=== PATIENT | male | born 1990 | race Two or more races ===

== ENCOUNTER 2018-01-02 23:39 | Emergency (ER) | payer OTHER ==
[2018-01-02 23:52] VITALS: RESP 18; TEMP 98; O2SAT 100
--- NOTE | 2018-01-03 00:33 | ED PDOC ---
HPI: Male Pain Time Seen by Provider: 01/02/18 23:55 Chief Complaint (Nursing): Male Genitourinary Chief Complaint (Provider): Denies symptoms History Per: Patient History/Exam Limitations: no limitations Onset/Duration Of Symptoms: Days Current Symptoms Are (Timing): Still Present Additional Complaint(s): 27 yo male with no medical problems presents for evaluation. Pt states his girlfriend delivered their baby on 12/28. She was told today that she had trichomoniasis. Pt states he is not having any symptoms but is concerned. Pt states he has not any other partners. Pt would like urine tested first and treatment is positive. Past Medical History Reviewed: Historical Data, Nursing Documentation, Vital Signs Vital Signs: Last Vital Signs Temp 98.0 F 01/02/18 23:49 Pulse 63 01/02/18 23:49 Resp 18 01/02/18 23:49 BP 134/77 01/02/18 23:49 Pulse Ox 100 01/02/18 23:49 - Medical History PMH: No Chronic Diseases - Surgical History Surgical History: No Surg Hx - Family History Family History: States: No Known Family Hx - Living Arrangements Living Arrangements: With Family - Social History Current smoker - smoking cessation education provided: No - Allergies Allergies/Adverse Reactions: Allergies Allergy/AdvReac Type Severity Reaction Status Date / Time No Known Allergies Allergy Verified 01/03/18 00:08 Review of Systems ROS Statement: Except As Marked, All Systems Reviewed And Found Negative Constitutional: Negative for: Fever, Chills Genitourinary Male: Negative for: Dysuria, Frequency, Incontinence, Hematuria, Penile Discharge Physical Exam - Reviewed Nursing Documentation Reviewed: Yes Vital Signs Reviewed: Yes - Physical Exam Appears: Positive for: Well, Non-toxic, No Acute Distress Head Exam: Positive for: ATRAUMATIC, NORMAL INSPECTION, NORMOCEPHALIC Skin: Positive for: Normal Color, Warm, DRY Eye Exam: Positive for: Normal appearance ENT: Positive for: Normal ENT Inspection Neck: Positive for: Normal, Painless ROM Cardiovascular/Chest: Positive for: Regular Rate, Rhythm Respiratory: Positive for: Normal Breath Sounds. Negative for: Accessory Muscle Use, Respiratory Distress Back: Positive for: Normal Inspection Extremity: Positive for: Normal ROM. Negative for: Tenderness Neurologic/Psych: Positive for: Alert - ECG O2 Sat by Pulse Oximetry: 100 Medical Decision Making Medical Decision Making: Urine sent to lab. Discussed to f/u with PMD or go to medical records for results. Disposition - Clinical Impression Clinical Impression: Routine screening for STI (sexually transmitted infection) - Disposition Disposition: Routine/Home Disposition Time: 00:36 Condition: STABLE Instructions: Screening for Sexually Transmitted Infections
[2018-01-03 01:44] VITALS: BP 131/75; PULSE 61
== END 2018-01-03 01:44 | disposition home or self-care (01) ==
LOC: H.ER 23:39
DX: Z11.3 Encounter for screening for infections with a predominantly sexual mode of transmission (principal)